=== PATIENT | female | born 1995 | race Caucasian/White ===

== ENCOUNTER 2017-09-27 11:44 | Emergency (ER) | payer OTHER ==
[2017-09-27 11:48] VITALS: BP 116/73; PULSE 88; TEMP 98.4; BMI 20.5
--- NOTE | 2017-09-27 12:04 | PDOC ---
History of Present Illness - General Chief Complaint: Rash Stated Complaint: RASH TO FACE Time Seen by Provider: 09/27/17 11:46 - History of Present Illness Initial Comments: 09/27/17 12:04 21yo female with no pmhx presents to the ED for eval of a rash to her face. Pt states she used cocoa butter last night to help with her acne scars. States she woke up this AM with acne all over her face. Pt c/o mild pruritis. Denies drainage. Mild redness. Pt denies lip or tongue swelling. No hives. Pt with an outbreak of acne on her face after using the cocoa butter. no cp/sob. No cough. No f/c. Speaking in full sentences. 09/27/17 12:06 PMHx: denies PSHx: denies Allergies: nkda Meds: denies social: denies tobacco, etoh, drugs Past History - Past Medical History Allergies/Adverse Reactions: Allergies Allergy/AdvReac Type Severity Reaction Status Date / Time No Known Allergies Allergy Verified 09/27/17 11:44 Home Medications: Ambulatory Orders Hydrocortisone 1% Cream [Hytone 1% Cream -] 1 applic TP DAILY #1 tube 09/27/17 COPD: No Other medical history: PT DENIES - Suicide/Smoking/Psychosocial Hx Smoking History: Never smoked Have you smoked in the past 12 months: No Hx Alcohol Use: No Drug/Substance Use Hx: No Review of Systems - Review of Systems Able to Perform ROS?: Yes Is the patient limited Monegasque proficient: No Constitutional: No: Chills, Fever HEENTM: No: Eye Pain, Nose Pain, Nose Congestion, Throat Pain Respiratory: No: Cough, Shortness of Breath Cardiac (ROS): No: Chest Pain ABD/GI: No: Diarrhea, Nausea, Vomiting Musculoskeletal: No: Back Pain, Neck Pain Integumentary: Yes: Lesions, Pruritus, Rash Neurological: No: Headache, Numbness All Other Systems: Reviewed and Negative *Physical Exam - Vital Signs Last Vital Signs Temp Pulse Resp BP Pulse Ox 98.4 F 88 16 116/73 100 09/27/17 11:45 09/27/17 11:45 09/27/17 11:45 09/27/17 11:45 09/27/17 11:45 - Physical Exam General Appearance: Yes: Nourished, Appropriately Dressed. No: Apparent Distress HEENT: positive: EOMI, Normal Voice, Pharynx Normal. negative: Rhinorrhea Neck: positive: Supple. negative: Rigid Respiratory/Chest: positive: Lungs Clear, Normal Breath Sounds Cardiovascular: positive: Regular Rhythm, Regular Rate, S1, S2 Gastrointestinal/Abdominal: positive: Flat Musculoskeletal: positive: Normal Inspection Extremity: positive: Normal Inspection, Normal Range of Motion Integumentary: positive: Dry, Warm, Rash, Other (acute acne breakout across face - lower face>forehead, localized to location she applied cocoa butter lotion). negative: Erythema, Swelling Neurologic: positive: technical training coordinator II-XII NML intact, Fully Oriented, Alert, Normal Mood/ Affect, Normal Response Medical Decision Making - Medical Decision Making 09/27/17 12:09 a/p: 21yo female with localized reaction to topical cocoa butter -acute outbreak of acne after using cocoa butter recommended disposing of product and not using any further products with fragrance, recommended hypoallogenic, fragrance free products -recommended keeping the skin hydrated -recommended hydrocortisone cream for localized reaction to cocoa butter and follow up with a teacher home therapy will give teacher home therapy for follow up answered all questions. discussed all reasons to return to the ED stable for d/c to home *DC/Admit/Observation/Transfer Diagnosis at time of Disposition: Adverse reaction to drug that acts primarily on skin - Discharge Dispostion Disposition: HOME Condition at time of disposition: Stable Admit: No - Prescriptions Prescriptions: Hydrocortisone 1% Cream [Hytone 1% Cream -] 1 applic TP DAILY #1 tube - Referrals Referrals: Lucia Westfall [Staff Physician] - Omid León MD [Staff Physician] - - Patient Instructions Printed Discharge Instructions: DI for Rash Additional Instructions: Please stop using cocoa butter products on your skin. Please use hypoallergenic fragrance free products. Please keep the skin moisturized. Please do not pick at the lesions. Please use all meds as prescribed. Please return to the ED with any further complaints. Please make an appointment to see the teacher home therapy and your PMD in 2-3 days. - Post Discharge Activity
== END 2017-09-27 12:18 | disposition home or self-care (01) ==
LOC: FER 11:44
DX: R21 Rash and other nonspecific skin eruption (principal); T50.995A Adverse effect of other drugs, medicaments and biological substances, initial encounter; Y92.89 Other specified places as the place of occurrence of the external cause
CPT/HCPCS: 99283-25